=== PATIENT | male | born 1990 | race Caucasian/White ===

== ENCOUNTER 2021-07-20 10:59 | Emergency (ER) | payer OTHER ==
[~2021-07-20] VITALS: Ht 167.6 cm; Wt 88.5 kg
[2021-07-20 13:24] LABS: CORONAVIRUS 2019 SARS-COV-2 NEGATIVE (NEGATIVE)
[2021-07-20 13:26] LABS: INFLUENZA A NAA POSITIVE (NEGATIVE)
== END 2021-07-20 15:15 | disposition home or self-care (01) ==
LOC: FER 10:59
PROVIDERS: Emergency Medicine
DX: J10.1 Influenza due to other identified influenza virus with other respiratory manifestations (principal); Z20.822 Contact with and (suspected) exposure to COVID-19
CPT/HCPCS: 71046; U0002

== ENCOUNTER 2021-09-09 03:09 | Emergency (ER) | payer OTHER ==
[2021-09-09] MEDS ORDERED: NAPROXEN500 MG PO (03:43)
[2021-09-09] MEDS ORDERED: NORCO 5-325 TA1 EACH PO (03:43)
== END 2021-09-09 04:12 | disposition home or self-care (01) ==
LOC: FER 03:09
DX: M79.672 Pain in left foot (principal)
CPT/HCPCS: 73630; J2930